=== PATIENT | female | born 1955 | race Caucasian/White ===

== ENCOUNTER 2017-01-25 10:02 | Day surgery (SDC) | payer OTHER ==
[~2017-01-25] VITALS: Ht 144.8 cm; Wt 61.2 kg
[~2017-01-25 10:02] MED LIST: ASPI81TA3 PO; CAPT25TA3 PO; CHOL50009 PO; DOCU-144 PO; GABA300C16 PO; HYDR-3498 PO; HYDR-762 PO; LEVO50TA83 PO; METF500T4 PO; ONDA4TAB35 PO
[2017-01-25 10:48] VITALS: Ht 144.8 cm; Wt 61.2 kg
[2017-01-25 11:36] VITALS: BP 182/86; PULSE 64; RESP 18
[2017-01-25] MEDS ORDERED: FENTAnyl 50 MCG/ML VIAL ONE (12:16)
[2017-01-25] MEDS ORDERED: MIDAZOLAM 1 MG/ML 2 ML INJ ONE ×2 (12:16)
[2017-01-25 12:33] VITALS: BP 137/79; PULSE 76; RESP 19
--- NOTE | 2017-01-25 13:29 | GILP ---
DATE OF PROCEDURE: 01/25/2017 NAME OF PROCEDURE: Colonoscopy. SURGEON: Caroline Davis MD PREOPERATIVE DIAGNOSIS: Screening colonoscopy. POSTOPERATIVE DIAGNOSES: 1. Colonoscopy all the way to the cecum. 2. Diverticulosis of the colon. 3. Internal hemorrhoids. 4. No colon neoplasm was identified. INDICATION FOR THE PROCEDURE: Ms. Corey Garcia is a 61-year-old female patient who was scheduled for screening colonoscopy. The procedure and possible complications were well explained to the patient, she understood and cons ented to the procedure. DESCRIPTION OF PROCEDURE: Under the influence of fentanyl and Versed, the colonoscope was carefully introduced in the rectum and under direct vision it was advanced all the way to the cecum. FINDINGS: The patient had diverticulosis of the colon. She also had internal hemorrhoids. No colo n neoplasm was identified. She tolerated the procedure very well and there was no complication from the procedure. At the end of the procedure, she was awake with stable vital signs and she was discharged home to the care of h er family. IMPRESSION: 1. Colonoscopy all the way to the cecum. 2. Diverticulosis of the colon. 3. Internal hemorrhoids. 4. No colon neoplasm was identified. PLAN: Next screening colonoscopy in 10 years. Dictated By: CAROLINE TELLEZ/JOHN Conf#: [id number] DID#: [id number] CC: CAROLINE DAVIS MD;*EndCC*
== END 2017-01-25 15:46 | disposition home or self-care (01) ==
LOC: GIL 10:02
PROVIDERS: ATTEND Internal Medicine Gastroenterology
DX: Z12.11 Encounter for screening for malignant neoplasm of colon (principal); K57.90 Diverticulosis of intestine, part unspecified, without perforation or abscess without bleeding; K64.8 Other hemorrhoids; I10 Essential (primary) hypertension; E11.9 Type 2 diabetes mellitus without complications
CPT/HCPCS: 45378; J2250; J3010; Z7610